=== PATIENT | male | born 1970 | race Caucasian/White ===

== ENCOUNTER 2017-09-10 11:14 | Emergency (ER) | payer MEDICAID, OTHER ==
[2017-09-10 13:22] LABS: BILIRUBIN,URINE NEGATIVE (NEGATIVE)
[2017-09-10 13:23] LABS: UA CHARGE (STRIP ONLY) YES; UR CULTURE IF IND NOT INDICATED
[2017-09-10] MEDS ORDERED: HYDROcod/ACETAM 5/325 MG TABLET PO STA (13:42)
[2017-09-10] MEDS ORDERED: HYDROcod/ACETAM 5/325 MG TABLET ONE (13:56)
--- NOTE | 2017-09-10 14:26 | ED Physician Documentation ---
History of Present Illness - Stated complaint Stated Complaint: BODY PX - Chief complaint Chief Complaint: General - History obtained from History obtained from: Patient (pt is here for evaluation of a rash and pain in his right arm and entire body. he states that he also has had an 'enlarged sigmoid" for 6 months and he was told that he had 'spots on my left lung" that was diagnosed by another hospital and he was told to follow up with these. he states that his arm started to hurt 2 days ago then a rash started yesterday. No fevers, no change in bowel habits, no respiratory complatins.) Review of Systems Constitutional: denies: Fever, Chills, Fatigue Cardiac: denies: Chest pain / pressure, Palpitations, Pedal edema Respiratory: denies: Dyspnea, Cough, Hemoptysis, Wheezing GI: reports: Abdominal Pain. denies: Nausea, Vomiting, Constipation, Diarrhea : reports: Dysuria, Unable to Void (for the past 6 months) Skin: reports: Rash, Lesions. denies: Laceration (s) Musculoskeletal: reports: Extremity pain, Joint pain, Extremity swelling. denies: Neck pain Neurologic: reports: Generalized weakness. denies: Focal weakness, Numbness, Headache, LOC PD PAST MEDICAL HISTORY - Past Surgical History Past Surgical History: Yes General: Appendectomy - Present Medications Home Medications: Ambulatory Orders Medication Instructions Recorded Confirmed Amoxicillin 500 mg PO TID #20 tablet 02/18/16 Dexamethasone [Decadron] 4 mg PO DAILY #5 tablet 02/18/16 guaiFENesin/CODEINE [Robitussin AC] 10 ml PO Q6H PRN #240 ml 02/18/16 Acyclovir 800 mg PO 5XD #35 tablet 09/10/17 HYDROcod/ACETAM 5/325 [[place] 5/325] 1 - 2 ea PO Q6H PRN #15 tablet 09/10/17 - Allergies Allergies/Adverse Reactions: Allergies Allergy/AdvReac Type Severity Reaction Status Date / Time shellfish derived Allergy Intermediate Hives Verified 09/10/17 11:28 - Social History Does the pt smoke?: Yes Smoking Status: Current every day smoker Does the pt drink ETOH?: Yes Does the pt have substance abuse?: No Substance Use and Type: Marijuana - Immunizations Immunizations are current?: Yes PD ED PE NORMAL - Vitals Vital signs reviewed: Yes - General General: Alert and oriented X 3, No acute distress, Well developed/nourished - HEENT HEENT: Atraumatic, Moist mucous membranes, Pharynx benign - Neck Neck: Supple, no meningeal sign - Cardiac Cardiac: No gallop, No rub. 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 the rash is well demarcated. the AC fossa and upper arm has clumps of vessicles. ) - Neuro Neuro: Alert and oriented X 3 Eye Opening: Spontaneous Motor: Obeys Commands Verbal: Oriented GCS Score: 15 - Psych Psych: Normal mood, Normal affect Results - Vitals Vitals: Vital Signs - 24 hr 09/10/17 09/10/17 09/10/17 11:22 12:43 13:44 Temperature 37.1 C 37.1 C Heart Rate 111 H 87 113 H Respiratory 18 15 20 Rate Blood Pressure 112/76 114/83 H 122/67 O2 Saturation 99 97 97 Oxygen O2 Source Room air - EKG (time done) 1356 Rate: Rate (enter#) Rhythm: NSR [place]: Normal Intervals: Normal AK, QRS normal QRS: Normal Ischemia: Normal ST segments - Labs Labs: Laboratory Tests 09/10/17 13:15 Urine Color YELLOW Urine Clarity CLEAR Urine pH 7.0 Ur Specific [place] 1.010 Urine Protein NEGATIVE Urine Glucose (UA) NEGATIVE Urine Ketones NEGATIVE Urine Occult Blood NEGATIVE Urine Nitrite NEGATIVE Urine Bilirubin NEGATIVE Urine Urobilinogen 0.2 (NORMAL) Ur Leukocyte Esterase NEGATIVE Ur Microscopic Review NOT INDICATED Urine Culture Comments NOT INDICATED PD MEDICAL DECISION MAKING - ED course Complexity details: d/w patient ED course: pt with a rash exam that is C/W Zoster. his other concerns (lung findings, and enlarged sigmoid) are not new findings. Sigmoid has been going on for the past 6 months and the pt states that he has had a colonoscopy and upper Gi and was told that everything was fine. We discussed his rash. will send home with acyclovir and norco. Pt was told to follow up with his primary care provider about the other issues and his urinary sx which he also states has been going on for 6 months. he expressed understanding. Departure - Departure Disposition: 01 Home, Self Care Clinical Impression: Herpes zoster, Dysuria Condition: Good Instructions: ED Dysuria Uncertain Cause Ch, Shingles Herpes Zoster Follow-Up: primary,care provider [Other] Prescriptions: Acyclovir 800 mg PO 5XD #35 tablet HYDROcod/ACETAM 5/325 [[place] 5/325] 1 - 2 ea PO Q6H PRN #15 tablet PRN Reason: Pain Comments: Take all of your medications as instructed. You need to contact your primary care provider for a follow up to discuss the lung findings from the other ER and the bowel and urinary sx. Return to the ER for any new or worsening symptoms.
[2017-09-10 14:38] VITALS: BP 130/97
== END 2017-09-10 14:54 | disposition home or self-care (01) ==
LOC: ED 11:14
DX: B02.9 Zoster without complications (principal); R30.0 Dysuria; F17.200 Nicotine dependence, unspecified, uncomplicated
CPT/HCPCS: 81003; 93005; 99283; A9270; 81001; 87086

== ENCOUNTER 2017-12-08 15:51 | Outpatient (CLI) | payer MEDICAID | END 2017-12-08 15:52 | disposition critical access hospital (66) | LOC: EMS 15:51 | PROVIDERS: ATTEND Surgery | DX: R40.0 Somnolence (principal) | CPT/HCPCS: A0425; A0429 ==

== ENCOUNTER 2017-12-08 16:14 | Emergency (ER) | payer MEDICAID ==
--- NOTE | 2017-12-08 16:35 | ED Physician Documentation ---
PD HPI ALTERED MENTAL STATUS - Stated complaint Stated Complaint: ALOC - Chief complaint Chief Complaint: Neuro - History obtained from History obtained from: EMS, Police - History of Present Illness Timing - onset: Today Timing - details: Other (unknown onset, apparently abrupt, as he was on the bus and noted to not rouse/passed out. I suppose he got on the bus by himself, so would be abrupt onset. Police and EMS called. They could not rouse him easily.) Quality / character: Less responsive, Unresponsive Associated symptoms: General weakness Contributing factors: Substance abuse. No: Diabetic, Known psych illness Basline status: Alert and oriented X 3 Recently seen: Not recently seen Review of Systems Unable to obtain: Unresponsive PD PAST MEDICAL HISTORY - Past Medical History Cardiovascular: None Respiratory: None Neuro: None - Past Surgical History Past Surgical History: Yes General: Appendectomy - Allergies Allergies/Adverse Reactions: Allergies Allergy/AdvReac Type Severity Reaction Status Date / Time shellfish derived Allergy Intermediate Hives Verified 09/10/17 11:28 - Social History Does the pt smoke?: Yes Smoking Status: Current every day smoker Does the pt drink ETOH?: Yes Does the pt have substance abuse?: Yes Substance Use and Type: Marijuana, Meth - Family History Family history: reports: Unknown - Immunizations Immunizations are current?: Yes PD ED PE NORMAL - Vitals Vital signs reviewed: Yes - General General: Well developed/nourished. No: Alert and oriented X 3 (he is very sleepy, rousable to painful stimuli and mumbles response. Sats are good. ) - HEENT HEENT: PERRL (but constricted), Ears normal, Pharynx benign (has good gag reflex ). No: Moist mucous membranes - Neck Neck: Supple, no meningeal sign, No adenopathy - Cardiac Cardiac: RRR, No murmur - Respiratory Respiratory: Clear bilaterally - Abdomen Abdomen: Soft, Non tender, Non distended - Male Male : Deferred - Rectal Rectal: Deferred - Back Back: No CVA TTP - Derm Derm: Normal color, Warm and dry - Extremities Extremities: No tenderness to palpate, Normal ROM s pain - Neuro Neuro: No motor deficit, No sensory deficit Eye Opening: To Pain Motor: Localizes to Pain Verbal: Confused GCS Score: 11 Results - Vitals Vitals: Oxygen O2 Source Room air - Labs Labs: Laboratory Tests 12/08/17 12/08/17 12/08/17 16:59 16:59 17:35 WBC 12.8 H RBC 5.12 Hgb 14.7 Hct 44.9 MCV 87.7 MCH 28.7 MCHC 32.7 RDW 12.9 Plt Count 232 MPV 8.1 Neut # 8.5 H Lymph # 2.7 [place] # 1.5 H Eos # 0.1 Baso # 0.1 Absolute Nucleated RBC 0.01 Nucleated RBC % 0.1 Sodium 139 Potassium 3.8 Chloride 103 Carbon Dioxide 25 Anion Gap 11.0 BUN 14 Creatinine 1.1 Estimated GFR (MDRD) 72 L Glucose 91 Calcium 9.3 Total Bilirubin 0.7 AST 31 ALT 19 Alkaline Phosphatase 50 Total Protein 6.3 L Albumin 4.0 Globulin 2.3 Albumin/Globulin Ratio 1.7 Lipase 94 H Salicylates < 6.0 Urine Opiates Screen NEGATIVE Ur Oxycodone Screen NEGATIVE Urine Methadone Screen NEGATIVE Ur Propoxyphene Screen NEGATIVE Acetaminophen < 10 L Ur Barbiturates Screen NEGATIVE Ur Tricyclics Screen NEGATIVE Ur Phencyclidine Scrn NEGATIVE Ur Amphetamine Screen POSITIVE H U Methamphetamines Scrn POSITIVE H U Benzodiazepines Scrn NEGATIVE Urine Cocaine Screen NEGATIVE U Cannabinoids Screen POSITIVE H Ethyl Alcohol < 5.0 - Rads (name of study) head CT Radiology: Prelim report reviewed, EMP read contemporaneously (no acute process) PD MEDICAL DECISION MAKING - ED course Complexity details: reviewed results, considered differential (no alcohol on board. He slept a long time in ED with good vitals and sats. When awoke, he admitted to lot of meth a couple days ago and feeling very tired. Denies recent illness. Seems like post meth high crash and just needed to sleep it off. No other obvious bad causes. ), d/w patient Departure - Departure Disposition: 01 Home, Self Care Clinical Impression: Methamphetamine abuse Altered mental status Qualifiers: Altered mental status type: somnolence Qualified Code(s): R40.0 - Somnolence Condition: Stable Record reviewed to determine appropriate education?: Yes Instructions: ED Drug Abuse General Comments: Drink lots of fluids. Avoid meth drug use. Tylenol if needed for pains. Rest and sleep at home and eat regular foods. Discharge Date/Time: 12/08/17 22:57
[2017-12-08] MEDS ORDERED: SODIUM CHLORIDE 0.9% 1,000 ML IV ONE (16:48)
[2017-12-08 17:05] LABS: BASOPHILS # (AUTO) 0.1 10^3/uL (0.0-0.1); BASOPHILS % (AUTO) 0.5 %; EOSINOPHILS # (AUTO) 0.1 10^3/uL (0.0-0.7); EOSINOPHILS % (AUTO) 0.5 %; HGB - HEMOGLOBIN 14.7 g/dL (14.0-18.0); LYMPHOCYTES # (AUTO) 2.7 10^3/uL (1.5-3.5); LYMPHOCYTES % (AUTO) 20.9 %; MEAN CORPUSCULAR HEMOGLOBIN 28.7 pg (27.0-31.0); MEAN CORPUSCULAR HGB CONC 32.7 g/dL (32.0-36.0); MEAN CORPUSCULAR VOLUME 87.7 fL (80.0-94.0); MEAN PLATELET VOLUME 8.1 fL (7.4-11.4); MONOCYTES # (AUTO) 1.5 10^3/uL (0.0-1.0); MONOCYTES % (AUTO) 11.4 %; NEUTROPHILS # (AUTO) 8.5 10^3/uL (1.5-6.6); NEUTROPHILS % (AUTO) 66.7 %; PLT - PLATELET COUNT 232 10^3/uL (130-450); RED BLOOD COUNT 5.12 10^6/uL (4.70-6.10); RED CELL DISTRIBUTION WIDTH 12.9 % (12.0-15.0); WHITE BLOOD COUNT 12.8 x10^3/uL (4.8-10.8)
[2017-12-08 17:22] LABS: ALBUMIN/GLOBULIN RATIO 1.7 (1.0-2.2); ALKALINE PHOSPHATASE 50 IU/L (42-121); ALT ALANINE AMINOTRANSFERASE 19 IU/L (10-60); AST ASPARTATE AMINOTRANSFERASE 31 IU/L (10-42); BILIRUBIN,TOTAL 0.7 mg/dL (0.2-1.0); BUN - BLOOD UREA NITROGEN 14 mg/dL (6-20); CALCIUM 9.3 mg/dL (8.5-10.3); CARBON DIOXIDE - CO2 25 mmol/L (21-32); CHLORIDE 103 mmol/L (101-111); CREATININE 1.1 mg/dL (0.6-1.2); GFR - MDRD 72 (>89); GLUCOSE 91 mg/dL (70-100); LIPASE 94 U/L (22-51); SALICYLATE < 6.0 mg/dL; SODIUM 139 mmol/L (135-145); TOTAL PROTEIN 6.3 g/dL (6.7-8.2)
[2017-12-08 17:23] LABS: ACETAMINOPHEN < 10 ug/mL (10-30)
[2017-12-08 17:39] LABS: MUDS CUTOFF CONCENTRATIONS CUTOFF CONC BELOW:
[2017-12-08 17:54] LABS: AMPHETAMINE SCREEN,URINE POSITIVE (NEGATIVE); BENZODIAZEPINES SCREEN, URINE NEGATIVE (NEGATIVE); COCAINE SCREEN URINE NEGATIVE (NEGATIVE); METHADONE SCREEN, URINE NEGATIVE (NEGATIVE); METHAMPHETAMINES SCREEN, URINE POSITIVE (NEGATIVE); OPIATE SCREEN, URINE NEGATIVE (NEGATIVE); OXYCODONE SCREEN, URINE NEGATIVE (NEGATIVE); PROPOXYPHENE SCREEN, URINE NEGATIVE (NEGATIVE); TRICYCLIC ANTIDEPRESSANT,URINE NEGATIVE (NEGATIVE)
--- NOTE | 2017-12-08 18:28 | CT Report ---
EXAM: CT HEAD EXAM DATE: 12/08/2017 06:02 PM. CLINICAL HISTORY: Altered mental status. COMPARISON: None. TECHNIQUE: Multiaxial CT images were obtained from the foramen magnum to the vertex. Reformats: Coron al. IV contrast: None. In accordance with CT protocol optimization, one or more of the following dose reduction techniques w ere utilized for this exam: automated exposure control, adjustment of mA and/or KV based on patient s ize, or use of iterative reconstructive technique. FINDINGS: Parenchyma: No intraparenchymal hemorrhage. No evidence of mass, midline shift, or CT findings of inf arction. Blul-white differentiation is distinct. Extraaxial Spaces: Normal for age. No subdural or epidural collections. Ventricles: Normal in size and position. Sinuses and Orbits: Imaged paranasal sinuses, orbits, and mastoids show no significant abnormality. Bones: Unremarkable. Other: None. IMPRESSION: Normal head CT. [facility] Referring Provider Line: [phone] SITE ID: [id number]
[2017-12-08 22:34] VITALS: BP 107/85
== END 2017-12-08 22:57 | disposition home or self-care (01) ==
LOC: EDUNIT# → ED 16:14
DX: F15.10 Other stimulant abuse, uncomplicated (principal); R40.0 Somnolence; F17.200 Nicotine dependence, unspecified, uncomplicated
CPT/HCPCS: 36415; 70450; 80053; 80306; 80307; 80320; 80329; 83690; 85025; 96360; 96361; 99284

== ENCOUNTER 2019-03-06 20:45 | Outpatient (CLI) | payer MEDICAID | END 2019-03-06 20:46 | disposition short-term general hospital (02) | LOC: EMS 20:45 | PROVIDERS: ATTEND Surgery | DX: R55 Syncope and collapse (principal); R47.9 Unspecified speech disturbances; R20.0 Anesthesia of skin; R07.89 Other chest pain | CPT/HCPCS: A0425; A0427; A0999 ==

== ENCOUNTER 2019-08-28 15:18 | Emergency (ER) | payer MEDICAID ==
[2019-08-28] MEDS ORDERED: oxyCODONE 5 MG TABLET PO STA (15:36)
--- NOTE | 2019-08-28 15:39 | ED Physician Documentation ---
PD HPI MAJOR TRAUMA - Stated complaint Stated Complaint: 12 FT FALL/L HIP/R ARM PX - Chief complaint Chief Complaint: Trauma Ch/Bk - History obtained from History obtained from: Patient (He fell off a 12 foot high truck yesterday. He does not know why he fell, he came down onto his left hip and right side both. He does not remember falling. No headache now, complains of neck pain, left hip pain, right wrist pain. Also right chest pain.) Review of Systems Ten Systems: 10 systems reviewed and negative Constitutional: denies: Fever, Chills Throat: denies: Dental pain / toothache, Sore throat Cardiac: denies: Palpitations, Pedal edema, Calf pain Respiratory: denies: Dyspnea, Cough PD PAST MEDICAL HISTORY - Past Medical History Cardiovascular: None Respiratory: None - Past Surgical History Past Surgical History: Yes General: Appendectomy - Present Medications Home Medications: Ambulatory Orders Medication Instructions Recorded Confirmed Oxycodone HCl/Acetaminophen 1 - 2 each PO Q6H PRN #10 tablet 08/28/19 [Percocet 5-325 mg Tablet] - Allergies Allergies/Adverse Reactions: Allergies Allergy/AdvReac Type Severity Reaction Status Date / Time shellfish derived Allergy Intermediate Hives Verified 08/28/19 15:30 - Social History Does the pt smoke?: Yes Smoking Status: Current every day smoker Does the pt drink ETOH?: Yes Does the pt have substance abuse?: Yes - Immunizations Immunizations are current?: Yes PD ED PE NORMAL - Vitals Vital signs reviewed: Yes - General General: Alert and oriented X 3, No acute distress - HEENT HEENT: PERRL, EOMI - Neck Neck: Other (On my examination a c-collar had already been placed by the triage nurse, mild mid C-spine tenderness.) - Cardiac Cardiac: RRR, No murmur - Respiratory Respiratory: No respiratory distress, Clear bilaterally - Abdomen Abdomen: Non tender - Back Back: No spinal TTP - Extremities Extremities: Other (Very mild tenderness of the left hip laterally, painless internal and external rotation. He has been ambulating normally. He is quite tender over the dorsal distal right wrist without deformity. The remainder of his extremities are palpated and nontender.) - Neuro Neuro: Alert and oriented X 3, Normal speech Results - Vitals Vitals: Vital Signs - 24 hr 08/28/19 08/28/19 08/28/19 15:23 16:26 16:37 Temperature 36.8 C Heart Rate 77 63 54 L Respiratory 20 18 18 Rate Blood Pressure 99/75 97/68 98/66 O2 Saturation 97 94 96 Oxygen O2 Source Room air - Rads (name of study) X-ray of the left hip and most of the femur Radiology: EMP read contemporaneously (Hardware in place without evidence of displacement or abnormality that would be acute.) X-rays of the chest and left wrist Radiology: EMP read contemporaneously (Old fractures, nothing acute.) PD MEDICAL DECISION MAKING - ED course ED course: 49-year-old gentleman presents a day after a fall from height, multiple areas of pain but examination is not too concerning. He was administered oxycodone. Relevant imaging was negative for acute trauma. C-collar removed and C-spine nontender on reevaluation. Given a Velcro wrist splint. Departure - Departure Disposition: 01 Home, Self Care Clinical Impression: Fall from height of greater than 3 feet Contusion of chest wall Qualifiers: Encounter type: initial encounter Laterality: right Qualified Code(s): S20.211A - Contusion of right front wall of thorax, initial encounter Neck strain Qualifiers: Encounter type: initial encounter Qualified Code(s): S16.1XXA - Strain of muscle, fascia and tendon at neck level, initial encounter Right wrist sprain Qualifiers: Encounter type: initial encounter Qualified Code(s): S63.501A - Unspecified sprain of right wrist, initial encounter Contusion of left hip Qualifiers: Encounter type: initial encounter Qualified Code(s): S70.02XA - Contusion of left hip, initial encounter Head injury Qualifiers: Encounter type: initial encounter Qualified Code(s): S09.90XA - Unspecified injury of head, initial encounter Condition: Good Instructions: ED Contusion Chest Wall, ED Sprain Strain Neck Prescriptions: Oxycodone HCl/Acetaminophen [Percocet 5-325 mg Tablet] 1 - 2 each PO Q6H PRN #10 tablet PRN Reason: pain Comments: Call your doctor to arrange a follow-up appointment, make the next available appointment. In the interim, return anytime if worse or if new symptoms develop. Do not drink or drive while taking narcotic pain medication. Note that many narcotic pain relievers also contain Tylenol/acetaminophen. Please ensure that your total dose of acetaminophen from all sources does not exceed 3 g (3000 mg) per day. You may get constipated while on this medication. Take a stool softener such as Colace twice a day while you are on it. Also add an [id number] laxative such as senna or MiraLAX on any day that you do not have a bowel movement. If you received a narcotic pain medication or sedative while in the emergency department, do not drive for the next 24 hours. Discharge Date/Time: 08/28/19 17:03
--- NOTE | 2019-08-28 16:27 | XRAY Report ---
Reason: fall from height, amnesia, neck pain, L hip pain, Procedure Date: 08/28/2019 Accession Number: [id number] / [id number] Procedure: XR - Hip w/Pelvis 2-3V LT CPT Code: Final Report FULL RESULT: EXAM: LEFT HIP RADIOGRAPHY EXAM DATE: 08/28/2019 03:59 PM. CLINICAL HISTORY: Fall from height, amnesia, neck pain, left hip pain. COMPARISON: None available. TECHNIQUE: 2 views. FINDINGS: Bones: There is an intramedullary nail in the left femur across an old diaphysis fracture deformity. No acute fractures are evident. Joints: Normal. No dislocation. The hip joint space is preserved. Soft Tissues: Normal. No soft tissue swelling. IMPRESSION: No acute abnormality. [facility]
--- NOTE | 2019-08-28 16:42 | XRAY Report ---
Reason: fall from height, amnesia, neck pain, L hip pain, Procedure Date: 08/28/2019 Accession Number: [id number] / [id number] Procedure: XR - Chest 2 View X-Ray CPT Code: 51808 Final Report FULL RESULT: EXAM: CHEST RADIOGRAPHY EXAM DATE: 08/28/2019 04:16 PM. CLINICAL HISTORY: Fall from height. Amnesia. Left back pain. COMPARISON: CHEST 2 VIEW PA/LAT 02/18/2016 4:30 AM. TECHNIQUE: 2 views. FINDINGS: Lungs/Pleura: Normal volumes. No focal opacities are evident. No pleural effusion or pneumothorax. Mediastinum: Normal cardiomediastinal contour. Other: Old fracture deformity of the left posterolateral ninth rib. IMPRESSION: No acute cardiopulmonary abnormality. [facility]
--- NOTE | 2019-08-28 16:44 | XRAY Report ---
Reason: R wrist inj Procedure Date: 08/28/2019 Accession Number: [id number] / [id number] Procedure: XR - Wrist 4 View RT CPT Code: Final Report FULL RESULT: EXAM: RIGHT WRIST RADIOGRAPHY EXAM DATE: 08/28/2019 04:16 PM. CLINICAL HISTORY: Wrist pain post fall. COMPARISON: FOREARM RT 08/09/2013 1:12 PM. TECHNIQUE: 4 views. FINDINGS: Bones: There is well-corticated bony opacity noted about the dorsal aspect of the proximal carpal row, to suggest possible remote fracture. No obvious acute fracture seen. Joints: Mild osteoarthritic changes present. No subluxations seen. Soft Tissues: Minimal dorsal soft tissue swelling noted. IMPRESSION: 1. Well-corticated bony opacity noted about the dorsal aspect of the proximal carpal row to suggest possible remote fracture of the triquetrum. No obvious acute fracture noted. 2. Mild osteoarthritis with minimal dorsal soft tissue swelling noted. [facility]
--- NOTE | 2019-08-28 16:48 | CT Report ---
Reason: fall from height, amnesia, neck pain, L hip pain, Procedure Date: 08/28/2019 Accession Number: [id number] / [id number] Procedure: CT - HEAD WO CPT Code: Final Report FULL RESULT: EXAM: CT HEAD EXAM DATE: 08/28/2019 04:22 PM. CLINICAL HISTORY: Fall from height, amnesia, neck pain, L hip pain. COMPARISON: HEAD W/O 12/08/2017 5:56 PM. TECHNIQUE: Multiaxial CT images were obtained from the foramen magnum to the vertex. Reformats: Sagittal and coronal. IV contrast: None. In accordance with CT protocol optimization, one or more of the following dose reduction techniques were utilized for this exam: automated exposure control, adjustment of mA and/or KV based on patient size, or use of iterative reconstructive technique. FINDINGS: Parenchyma: No intraparenchymal hemorrhage. No evidence of mass, midline shift, or CT findings of infarction. Bull-white differentiation is distinct. Extraaxial Spaces: Normal for age. No subdural or epidural collections identified. Ventricles: Normal in size and position. Sinuses and Orbits: Imaged paranasal sinuses, orbits, and mastoids show no significant abnormality. Bones: No evidence of fracture or calvarial defect. Other: None. IMPRESSION: Normal head CT. [facility]
[2019-08-28 16:50] VITALS: BP 98/66
--- NOTE | 2019-08-28 16:52 | CT Report ---
Reason: fall from height, amnesia, neck pain, L hip pain, Procedure Date: 08/28/2019 Accession Number: [id number] / [id number] Procedure: CT - CERVICAL SPINE WO CPT Code: Final Report FULL RESULT: EXAM: CT CERVICAL SPINE WITHOUT CONTRAST DATE: 08/28/2019 04:22 PM. HISTORY: Fall from height, amnesia, neck pain, L hip pain. COMPARISONS: HEAD W/O 12/08/2017 5:56 PM. TECHNIQUE: Thin-section axial images were acquired of the cervical spine without contrast. Post-processing: Coronal and sagittal reformats. Other: None. In accordance with CT protocol optimization, one or more of the following dose reduction techniques were utilized for this exam: automated exposure control, adjustment of mA and/or KV based on patient size, or use of iterative reconstructive technique. FINDINGS: Alignment: No subluxation or scoliosis. Bones: Negative for an acute fracture. No lytic or destructive bone lesion. Interspace Levels/Facets: There is anterior disk osteophyte spurring and calcification at C2-C3. There is mild to moderate disk height loss with disk osteophyte spurring at C6-C7. Facet joints appear normal in alignment. No central spinal canal stenosis. Musculature: Musculature is symmetric and unremarkable. Other: Trachea is midline. No apical pneumothorax. IMPRESSION: 1. Negative for an acute fracture and subluxation of the cervical spine. [facility]
== END 2019-08-28 17:03 | disposition home or self-care (01) ==
LOC: ED 15:18
DX: S16.1XXA Strain of muscle, fascia and tendon at neck level, initial encounter (principal); S63.501A Unspecified sprain of right wrist, initial encounter; S20.211A Contusion of right front wall of thorax, initial encounter; S70.02XA Contusion of left hip, initial encounter; S09.90XA Unspecified injury of head, initial encounter; W17.89XA Other fall from one level to another, initial encounter; Y93.89 Activity, other specified; F17.200 Nicotine dependence, unspecified, uncomplicated
CPT/HCPCS: 70450; 71046; 72125; 73110; 73502; 99283; 99284; A9270

== ENCOUNTER 2019-09-12 00:32 | Emergency (ER) | payer MEDICAID ==
[2019-09-12 01:07] VITALS: BP 106/71
== END 2019-09-12 02:30 | disposition left against medical advice (07) ==
LOC: ED 00:32
DX: Z53.21 Procedure and treatment not carried out due to patient leaving prior to being seen by health care provider (principal)